=== PATIENT | male | born 1950 | race Caucasian/White ===

== ENCOUNTER 2021-10-10 09:36 | Outpatient (CLI) | payer OTHER ==
[~2021-10-10 09:36] MED LIST: BENZOTIC15 ML OT; GILTUSS LIQUID237 M1 PO
== END 2021-10-10 09:48 | disposition home or self-care (01) ==
LOC: RAD 09:36
PROVIDERS: ATTEND Ophthalmology
DX: H25.011 Cortical age-related cataract, right eye (principal); Z98.41 Cataract extraction status, right eye